=== PATIENT | female | born 1990 | race Caucasian/White ===

== ENCOUNTER 2016-06-26 10:28 | Emergency (ER) | payer SELFPAY ==
[~2016-06-26] VITALS: Ht 156.2 cm; Wt 47.4 kg
[~2016-06-26 10:28] MED LIST: ACET1TAB12 PO; ACYC800T PO; GABA-338 PO; HYDR-4246 PO; SULF1TAB42 PO
[2016-06-26 10:40] VITALS: BP 105/69; PULSE 52; RESP 18; TEMP 98.1; O2SAT 99; Ht 156.2 cm; Wt 47.4 kg
--- NOTE | 2016-06-26 10:54 | NUR ---
PT NOTE Explained high volume of emergent patient, patient understands and is comfortable at this time.
[2016-06-26] MEDS ORDERED: CEPH-583 PO (11:05)
[2016-06-26] MEDS ORDERED: SULF1TAB42 PO (11:05)
--- NOTE | 2016-06-26 11:06 | ERPDOC ---
Departure Disposition Decision Date: Jun 26, 2016 Disposition Decision Time: 11:04 Disposition: 01 DISCHARGED HOME, SELF-CARE Impression Impression Impression: Primary Impression: Stye Laterality: right Eyelid: upper Qualified Codes: H00.011 - Hordeolum externum right upper eyelid Severity: Mild Condition: Improved Seen By: Physician only Referrals: Zeferino PEREZ MD (PCP) 2 Days Patient Instructions: Stye (ED) Problems/Meds/Labs Reviewed?: Yes Medications reviewed and manag: Yes Follow up care ordered?: Yes Mental Status: Alert, Oriented HPI - Skin General General Chief Complaint: Skin Injury Stated Complaint: POSSIBLE SPIDER BITE Time Seen by Provider: 10:29 Source: patient Exam Limitations: no limitations HPI - Skin General Initial Comments 25-year-old female presents to emergency department with a chief complaint of a potential spider bite to her right upper eyelid. Patient awoke this morning and noted mild swelling to her R eyelid. She notes that it is a mild dull discomfort. No radiation. She denies foreign body sensation to the eye. Patient denies any trauma or injury. There are no other complaints or associated symptoms. She was at home when the symptoms began. Symptoms have been persistent in nature since onset. No change in vision. Occurred At: home Onset: Gradual Allergies: Coded Allergies: No Known Allergies (Unverified , 09/27/15) Past History Past Medical History Pt denies signifigant PMH Hematologic: anemia Surgical History Reproductive/: Family History Family History: Negative Vaccines Hx Influenza Vaccination: No Hx Pneumococcal Vaccination: No Social History Smoking Status: Never smoker Substance Use Type: does not use Alcohol Intake: none Sexuality: male partner Review of Systems Constitutional Constitutional: DENIES: chills, fever Eyes General: DENIES: erythema, exudate, foreign body sensation Lids/Accessories: lumps/nodules, swelling, DENIES: erythema Vision: DENIES: acuity, blurring ENMT Ears: DENIES: drainage, erythema Hearing: DENIES: hearing loss Balance: DENIES: ataxia, falling to one side Sinuses: DENIES: congestion, pain Nose: DENIES: nosebleeds, pain Mouth/Throat: DENIES: painful swallowing, sore throat Teeth: DENIES: pain Jaw: DENIES: pain Cardiovascular Cardiac: DENIES: chest pain, dyspnea on exertion Rhythm/Rate: DENIES: irregular beat, palpitations Vascular: DENIES: pedal edema, unilateral swelling Pulmonary Respiratory: DENIES: cough, dyspnea, pleuritic chest pain, sputum GI Upper Abdomen: DENIES: nausea, pain, vomiting Lower Abdomen: DENIES: diarrhea, pain General: DENIES: dysuria, frequency Musculoskeletal General: DENIES: joint pain, tenderness Integumentary Skin: DENIES: itching, rash Neurological General: DENIES: headache, numbness, weakness Psychiatric Psychiatric: DENIES: emotional instability, suicidal ideation/attempt Endocrine Endocrine: DENIES: polydipsia, polyphagia Hematologic/Lymphatic Hematologic/Lymphatic: DENIES: frequent nosebleeds, lymphadenopathy Allergic/Immunological Allergic/Immunoligical: DENIES: allergic reactions, hives Physical Exam General General Nourishment: well nourished, well developed, appears stated age, no acute distress, adult General Body Habitus: well groomed Vitals and Pain First Documented Vital Signs Date Time Temp Pulse Resp B/P Pulse Ox O2 Delivery O2 Flow Rate FiO2 06/26/16 10:40 98.1 52 18 105/69 99 Weight: Kilograms: 47.400 Height (feet): 5 Height (inches): 1.50 Triage Pain Scale: RN VS reviewed by Provider: Yes Normal Exams: Head: Normocephalic w/o trauma Eyes: Pupils are PERRLA w/ EOMI, No scleral icterus, irritation, or foreign bodies noted ENMT: No facial trauma, nasal exudates, pharyngeal erythema, or exudates are noted Dental: No fractured, loose, or missing teeth noted Neck: Full range of motion, without adenopathy, JVD, bruits or thyromegaly Chest/Resp: Clear all roland, with good airflow, and symmetry bilaterally CV: Regular rate and rhythm, without murmur or gallop, Pulses 2+ all extremities, capillary refill, <2 seconds all ext., no pedal edema noted Abdomen: Bowel sounds positive, soft, non-tender, non-distended, no hepatosplenomegaly, masses or bruits noted Lymphatic: No lymphadenopathy, or lymphedema noted Musculoskeletal: No tenderness, or deformity noted, good range of motion, all extremities Integumentary: No rashes, hives, or bruising noted, hair and nails, without abnormality Neurologic: Patient is alert, and oriented, cranial nerves, motor/sensory/ cerebellar, exams w/o gross deficits, to observation Psychiatric: Patient exhibits, appropriate attention, emotion and affect Eyes (brief) Comments R eye - Pupil is round equal and reactive to light. Extraocular movements are intact and pain free. No pain with light inducement. Lid is everted and examined all roland and extraocular motion and no foreign body is noted. No erythema to the lids. Small area consistent with stye is noted to the right upper eyelid. Normal conjunctiva. Normal lids and lashes. Patient declines visual acuity/fluorescein stain/IOP/slit lamp exam. No proptosis. Globe intact. Left eye - normal exam. Differential Diagnoses Considering: Other (Stye, Preseptal cellulitis, blepharitis, conjunctivitis) Progress Results/Orders Orders Procedure Category Date Status Time Sulfamethoxazole/Trimethoprim PHA 06/26/16 In Process (Bactrim D 21:00 Cephalexin Capsule PHA 06/26/16 Complete (Keflex) 11:15 Medications Current ED Medications Trimethoprim/ Sulfamethoxazole (Bactrim Ds) 1 tab BID PO Last administered on 11:13; Start 06/26/16 at 21:00 Cephalexin HCl (Keflex) 500 mg O ONCE PO Last administered on 06/26/16 11:13 ; Start 06/26/16 at 11:15; Stop 06/26/16 at 11:16; Status DC Progress Progress Patient declined slit lamp exam / intraocular pressure measurement / fluorescein stain / visual acuity in the ED. Patient was instructed to use warm soaks 4 times a day to the affected area. Patient is convinced that the eyelid has a bacterial infection is requesting antibiotic coverage. Patient is given Bactrim DS and Keflex prescriptions. She is discharged home in improved condition. She is to follow up as instructed. She is to return to the emergency Department if her condition worsens or changes in any manner. Patient is in agreement with the current plan of management. She is to follow up as instructed. She declined offered analgesic pain medication in the ED. ALISON KAYE DO Jun 26, 2016 11:06 ALISON KAYE DO Jun 26, 2016 11:06
[2016-06-26] MEDS ORDERED: NO ROUTINE MEDS (11:12)
--- NOTE | 2016-06-26 11:13 | NUR ---
MEDS KEFLEX AND BACTRIM GIVEN.
[2016-06-26] MEDS ORDERED: CEPHALEXIN 500 MG CAPSULE PO ONE (11:15)
--- NOTE | 2016-06-26 11:17 | NUR ---
DISMISSAL NOTE DISMISSAL INSTRUCTION GIVEN TO PT. AND NO FURTHER QUESTIONS. RX. FOR KEFLEX AND BACTRIM GIVEN TO PT. PT. LEFT ED AMBULATORY BY SELF.
[2016-06-26] MEDS ORDERED: SULFAMETHOXAZOLE/TMP 800mg/160mg TABLET PO SCH (21:00)
== END 2016-06-26 11:17 | disposition home or self-care (01) ==
LOC: ED 10:28
DX: H00.011 Hordeolum externum right upper eyelid (principal)

== ENCOUNTER 2016-07-09 16:28 | Emergency (ER) | payer SELFPAY ==
[~2016-07-09] VITALS: Ht 156.2 cm; Wt 36.2 kg
[~2016-07-09 16:28] MED LIST changes: -ACET1TAB12 PO; -ACYC800T PO; -GABA-338 PO; -HYDR-4246 PO; +NO ROUTINE MEDS; -SULF1TAB42 PO
[2016-07-09 16:30] VITALS: Ht 156.2 cm; Wt 36.2 kg
--- OUTSIDE RECORDS SUMMARY | 2016-07-09 16:31 | XMS REPORT | Continuity of Care Document ---
Author Author [facility] Organization [facility] Address Unknown Phone Unavailable Support Name Relationship Address Phone Zeferino PEREZ MD Caregiver [address] [place] [address] Unavailable ALISON KAYE DO Caregiver [address] [place] [address] Unavailable CHIQUI HOWELL Next Of Kin [address] [place] [address] Insurance Providers Guarantor Anamaria Howell Address [address] [place] [address] Email DENIED 16 Payer Self Pay Subscriber's Name Anamaria Howell Relationship 18 Self Advance Directives Directive Response Recorded Date/Time Advanced Directives Type None 06/26/16 10:53am Chief Complaint and Reason for Visit Chief Complaint Skin Injury Reason for Visit [id number] Problems Active Problems Medical Problem Onset Date Status ABDOMINAL PAIN Unknown Acute Chlamydia Exposure Unknown Acute Folliculitis Unknown Acute Headache Unknown Acute Headache Unknown Acute Hematemesis with nausea Unknown Acute Iron deficiency anemia of Unknown Acute Lip laceration Unknown Acute Lip laceration Unknown Acute Nausea & vomiting Unknown Acute Nausea & vomiting Unknown Acute Nausea & vomiting Unknown Acute Nausea & vomiting Unknown Acute Nausea & vomiting Unknown Acute Nausea & vomiting Unknown Acute Nausea and vomiting during Unknown Acute Pharyngitis Unknown Acute Unknown Acute Pyelonephritis complicating in second trimester, antepartum Unknown Acute Spotting affecting in first trimester Unknown Acute Stye Unknown Acute UTI (urinary tract infection) Unknown Acute Viral syndrome Unknown Acute Past Problems Medical Problem Onset Date Varicella zoster Unknown Medications Current Home Medications Medication Dose Units Route Directions Days Qty Instructions Start Date No Routine Meds 06/26/16 Past Home Medications Medication Directions Ordered Status Ondansetron (Zofran Odt) 4 Mg Tab.rapdis, 4 Mg Oral Q6h/0300,0900,1500,2100 for Nausea &/Or Vomiting 01/12/15 Discontinued Sucralfate (Carafate) 1 Gm Tablet, 1 G Oral Before Meals And At Bedtime 01/12 Discontinued Social History Social History Problem Response Recorded Date/Time Onset Date Status Hx Substance Use No 09/27/2015 1:10pm Not Applicable Not Applicable Hx Alcohol Use No 09/27/2015 1:10pm Not Applicable Not Applicable Has the pt used tobacco in the last 12 months No 02/09/2015 12:34pm Not Applicable Not Applicable Tobacco Usage none 12/11/2013 7:36am Not Applicable Not Applicable Query Response Start Date Stop Date Smoking Status Former smoker Hospital Discharge Instructions No hospital discharge instructions. Plan of Care Discharge Date 06/26/16 11:17am Disposition 01 DISCHARGED HOME, SELF-CARE Condition at Discharge Improved Instructions/Education Provided Stye (ED) Prescriptions See Medication Section Referrals Zeferino PEREZ MD Order Date: 2 Days Address: [facility] [place] [address] Note: Care Plan and Goals Physician Care Plan Problem: Stye Goal: Follow up with primary care provider Instructions: Take medications and follow care plan as discussed/written Functional Status No functional status results. Allergies, Adverse Reactions, Alerts No known allergies. Immunizations Query Response on File Recorded Date/Time Hx Influenza Vaccination No 08/15/14 8:14am Hx Pneumococcal Vaccination No 02/06/15 2:19pm Hx Tetanus, Diptheria, Pertussis 11/22/13 08/15/14 8:14am Hx Influenza Vaccination No 08/15/14 8:14am Hx Tetanus, Diptheria, Pertussis 11/22/13 08/15/14 8:14am Influenza Vaccine Hx 12/21/14 09/27/15 1:10pm Tdap Vaccine Hx 01/04/15 02/09/15 12:34pm Vital Signs Acute Vital Signs Vital Response Date/Time Temperature (Fahrenheit) 98.1 deg F (96.8 - 99.1) 06/26/2016 10:40am Temperature (Calculated Celsius) 36.59357 degrees C (36.0 - 37.3) 06/26/2016 10:40am Pulse Rate (adult) 52 bpm (60 - 100) 06/26/2016 10:40am Respiratory Rate 18 breaths/min (10 - 20) 06/26/2016 10:40am O2 Sat by Pulse Oximetry 99 % (90 - 100) 06/26/2016 10:40am Blood Pressure 105/69 mm Hg 06/26/2016 10:40am Height (Feet) 5 feet 06/26/2016 10:40am Height (Inches) 1.50 inches 06/26/2016 10:40am Weight (Kilograms) 47.400 kg 06/26/2016 10:40am Body Mass Index (BMI) 19.0 06/26/2016 10:40am Results No known relevant diagnostic tests, laboratory data and/or discharge summary. Procedures No known history of procedures. Encounters Encounter Location Arrival/Admit Date Discharge/Depart Date Attending Provider Departed Emergency Room [facility] 06/26/16 10:28am 06/26/16 11: 17am ALISON KAYE DO Recent Diagnosis
--- NOTE | 2016-07-09 16:53 | ERPDOC ---
Departure Disposition Decision Date: Jul 09, 2016 Disposition Decision Time: 17:47 Disposition: 01 DISCHARGED HOME, SELF-CARE Impression Impression Impression: Primary Impression: Nausea & vomiting Vomiting type: unspecified Vomiting Intractability: non-intractable Qualified Codes: R11.2 - Nausea with vomiting, unspecified Severity: Moderate Condition: Stable Seen By: Mid-level only Referrals: Zeferino PEREZ MD (Family) Patient Instructions: Acute Nausea and Vomiting (ED) Problems/Meds/Labs Reviewed?: Yes Medications reviewed and manag: Yes Additional Instructions: Take the Zofran at home as needed for nausea. Take small frequent sips of clear liquids to maintain hydration. If you are not improving in the next 24-48 hours then return to ER for reevaluation. Follow up care ordered?: Yes Mental Status: Alert, Oriented Scripts Ondansetron (Zofran Odt) 4 Mg Tab.rapdis 4 MG PO Q8HR, #7 TAB 0 Refills Orally disintegrating tablet Prov: EDWARD CHERY HEEL NAIL RASPER 07/09/16 HPI - Abdominal Pain General Chief Complaint: Nausea,Vomiting,Diarrhea Stated Complaint: VOMITING,CHEST PAIN Time Seen by Provider: 16:33 Source: patient History/Exam Limitations: no limitations HPI - Abdominal Pain Initial Comments She had onset of nausea/vomiting this morning. Has vomited several times at home. Denies any abdominal pain other than when she is vomiting and it is more muscular than anything. She denies any fever or chills or diarrhea. Had taken some TUMS but it did not help with the vomiting at all. Has not really been able to keep any fluids down at home. Occurred At: home Onset: Gradual Duration: 6-12 hrs Quality: other (None) Radiation: no radiation Associated Symptoms: nausea/vomiting, DENIES: back pain, chest pain, diaphoresis, fatigue, fever/chills, headache, heartburn, rash, shortness of breath, swelling/mass in abdomen, syncope, weakness Hx of Similar Symptoms: No Allergies: Coded Allergies: No Known Allergies (Unverified , 06/26/16) Past History Past Medical History Pt denies signifigant PMH Hematologic: anemia Surgical History Reproductive/: Family History Family History: Negative Vaccines Hx Influenza Vaccination: No Hx Pneumococcal Vaccination: No Social History Smoking Status: Never smoker Substance Use Type: does not use Alcohol Intake: none Sexuality: male partner Review of Systems Constitutional Constitutional: appetite decrease, fatigue, DENIES: chills, dizziness, fever, weakness Cardiovascular Cardiac: DENIES: chest pain, orthopnea Rhythm/Rate: DENIES: irregular beat, palpitations Pulmonary Respiratory: DENIES: cough, dyspnea, sputum, tachypnea GI Upper Abdomen: nausea, vomiting, DENIES: pain Lower Abdomen: DENIES: constipation, diarrhea, pain Integumentary Skin: DENIES: rash Neurological General: DENIES: headache, numbness, tingling, weakness Physical Exam General General Nourishment: well nourished, well developed, appears stated age, no acute distress, adult General Body Habitus: well groomed Vitals and Pain First Documented Vital Signs Date Time Temp Pulse Resp B/P Pulse Ox O2 Delivery O2 Flow Rate FiO2 07/09/16 16:30 98.1 94 16 112/72 100 Room Air Weight: Kilograms: 36.200 Height (feet): 5 Height (inches): 1.50 Triage Pain Scale: RN VS reviewed by Provider: Yes Normal Exams: Neck: Full range of motion, without adenopathy, JVD, bruits or thyromegaly Chest/Resp: Clear all roland, with good airflow, and symmetry bilaterally CV: Regular rate and rhythm, without murmur or gallop, Pulses 2+ all extremities, capillary refill, <2 seconds all ext., no pedal edema noted Abdomen: Bowel sounds positive, soft, non-tender, non-distended, no hepatosplenomegaly, masses or bruits noted Lymphatic: No lymphadenopathy, or lymphedema noted Integumentary: No rashes, hives, or bruising noted Neurologic: Patient is alert, and oriented Psychiatric: Patient exhibits, appropriate attention, emotion and affect Differential Diagnoses Considering: Dehydration, Food Poisoning, Gastroenteritis, Hyponatremia, Hypokalemia, Hypoglycemia Progress Results/Orders Orders Procedure Category Date Status Time Cbc W/Auto LAB 07/09/16 Complete Diff-Reflex Manual Cmp - Comprehensive LAB 07/09/16 Complete Metabolic Iv Lock (Ed Only) EDM 07/09/16 Transmitted 16:46 Normal Saline (Normal PHA 07/09/16 In Process Saline Iv) 17:00 Ondansetron Inj PHA 07/09/16 Complete (Zofran) 17:00 Lab Results Laboratory Tests Test 07/09/16 16:56 White Blood Count 12.4T/MM3 Red Blood Count 4.77M/MM3 Hemoglobin 14.0GM/DL Hematocrit 41.9% Mean Corpuscular Volume 87.8UM3 Mean Corpuscular Hemoglobin 29.4UUG Mean Corpuscular Hemoglobin Concent 33.4GM/DL RDW Standard Deviation 44.0FL Platelet Count 202T/MM3 Mean Platelet Volume 11.1UM3 Immature Granulocyte % (Auto) % Neutrophils (%) (Auto) % Lymphocytes (%) (Auto) % Monocytes (%) (Auto) % Eosinophils (%) (Auto) % Basophils (%) (Auto) % Absolute Immature Granulocyte (auto T/MM3 Absolute Neutrophils (auto) T/MM3 Absolute Lymphocytes (auto) T/MM3 Absolute Monocytes (auto) T/MM3 Absolute Eosinophils (auto) T/MM3 Absolute Basophils (auto) T/MM3 Neutrophils % (Manual) 84.0% Band Neutrophils % 9.0% Lymphocytes % (Manual) 4.0% Monocytes % (Manual) 3.0% Absolute Neutrophils (Manual) 10.4T/MM3 Band Neutrophils # 1.1T/MM3 Lymphocytes # (Manual) 0.5T/MM3 Monocytes # (Manual) 0.4T/MM3 Red Cell Morphology Comment Normal Turbidity < 20 Sodium Level 144MEQ/L Potassium Level 4.0MEQ/L Chloride Level 105MEQ/L Carbon Dioxide Level 23MEQ/L Anion Gap 16MEQ/L Blood Urea Nitrogen 20.0MG/DL Creatinine 0.6MG/DL Glomerular Filtration Rate Calc 124 BUN/Creatinine Ratio 33RATIO Glucose Level 117MG/DL Calculated Osmolality 281MOSM/KG Calcium Level 9.7MG/DL Total Bilirubin 0.80MG/DL Icterus Index < 2 Aspartate Amino Transf (AST/SGOT) 30U/L Alanine Aminotransferase (ALT/SGPT) 36U/L Alkaline Phosphatase 63U/L Total Protein 7.9G/DL Albumin 4.7G/DL Globulin 3.2G/DL Albumin/Globulin Ratio 1.5RATIO Chemistry Specimen Hemolysis < 15 Medications Current ED Medications Sodium Chloride (Normal Saline IV) 1,000 ml @ 1,000 mls/hr Q1H ONCE IV Last administered on 07/09/16t 17:00; Start 07/09/16 at 17:00; Stop 07/09/16 at 17:59 Ondansetron HCl (Zofran) 4 mg O ONCE IV Last administered on 07/09/16t 17:01; Start 07/09/16 at 17:00; Stop 07/09/16 at 17:01; Status DC Progress Progress CBC and BMP today are normal. WBC was slightly elevated at 12.4 with 84% neutrphils and 9% bands. I do think that this is likely viral however. She has not had any further vomiting after Zofran given. NS 1 liter has infused. Will go ahead and let her go home with Rx for Zofran. Follow up with her primary care provider for reevaluation if needed. EDWARD CHERY APRN Jul 09, 2016 16:53
[2016-07-09] MEDS ORDERED: ONDANSETRON 4mg/2ml INJECTION IV ONE (17:00)
[2016-07-09] MEDS ORDERED: NORMAL SALINE 1,000 ML IV ONE (17:00)
[2016-07-09 17:01] LABS: HCT - HEMATOCRIT 41.9 % (36-46); MEAN CORPUSCULAR HGB 29.4 UUG (26-34); MEAN CORPUSCULAR HGB CONC(MCHC 33.4 GM/DL (31-37); MEAN CORPUSCULAR VOLUME 87.8 UM3 (80-100); MEAN PLATELET VOLUME 11.1 UM3 (9.4-12.4); RED BLOOD COUNT 4.77 M/MM3 (4.00-5.20); WBC - WHITE BLOOD COUNT 12.4 T/MM3 (4.5-11.0)
--- NOTE | 2016-07-09 17:05 | NUR ---
MEDICATIONS IVF INFUSING ORDERED AND ZOFRAN 4MG IVPO ADMINISTERED
[2016-07-09 17:12] LABS: ALBUMIN 4.7 G/DL (3.5-5.0); ALBUMIN/GLOBULIN RATIO 1.5 RATIO (1.1-2.2); ALKALINE PHOSPHATASE 63 U/L (38-126); ALT (SGPT) 36 U/L (9-52); ANION GAP 16 MEQ/L (5-15); AST (SGOT) 30 U/L (14-36); BUN/CREATININE RATIO 33 RATIO (6-26); CALCIUM 9.7 MG/DL (8.4-10.2); CHLORIDE 105 MEQ/L (98-107); CO2 - CARBON DIOXIDE 23 MEQ/L (22-30); CREATININE 0.6 MG/DL (0.7-1.2); GLOMERULAR FILTRATION RATE 124; GLUCOSE 117 MG/DL (65-110); SODIUM 144 MEQ/L (134-144); TOTAL PROTEIN 7.9 G/DL (6.3-8.2)
[2016-07-09 17:33] LABS: BAND NEUTROPHILS # 1.1 T/MM3; LYMPHOCYTES # (MANUAL) 0.5 T/MM3 (1-4.8); MONOCYTES # (MANUAL) 0.4 T/MM3 (0-0.8); NEUTROPHILS #(MANUAL)-ABSOLUTE 10.4 T/MM3 (1.8-7.7); TOTAL CELLS COUNTED 100 %
--- NOTE | 2016-07-09 17:35 | NUR ---
REPORT REPORT TO AND CARE ASSUMED BY MARCELINO GRANT
[2016-07-09] MEDS ORDERED: ONDA4TAB7 PO (17:48)
[2016-07-09 17:59] VITALS: BP 103/59; PULSE 81; RESP 18; TEMP 98.1; O2SAT 99
--- NOTE | 2016-07-09 18:00 | NUR ---
DISCHARGE PT GIVEN INSTRUCTIONS FOR CONT CARE OF ACUTE N/V AND RX X1 ZOFRAN ODT. PT VERBALIZED UNDERSTANDING AND SIGN FORM. PT LEFT ER AMBULATORY W/O ASSIST, ALERT CONDITION IMPROVED NAUSEA RELIVED AND NO ACUTE DISTRESS.
== END 2016-07-09 18:00 | disposition home or self-care (01) ==
LOC: ED 16:28
DX: R11.2 Nausea with vomiting, unspecified (principal)
CPT/HCPCS: 80053; 85025